=== PATIENT | female | born 1955 | race Caucasian/White ===

== ENCOUNTER → 2023-07-11 | Outpatient (CLI) | payer MEDICARE ==
[2023-07-11 18:42] LABS: Free Thyroxine 0.83 ng/dL (0.70-1.60); Thyroid Stimulating Hormone 1.62 uIU/mL (0.360-4.800)
== END ==
LOC: LAB SHORT 14:59
PROVIDERS: Family Medicine
DX: G30.9 Alzheimer's disease, unspecified (principal); R41.3 Other amnesia; R41.89 Other symptoms and signs involving cognitive functions and awareness
CPT/HCPCS: 82607; 82746; 84439; 84443